=== PATIENT | male | born 1955 | race African-American/Black ===

== ENCOUNTER → 2017-06-08 | Outpatient (CLI) | payer BC ==
[2017-06-08 10:36] LABS: BASOPHILS % 0.4 % (0.0-2.0); EOSINOPHILS # 0.4 10^3/ul (0.0-0.5); EOSINOPHILS % 8.1 % (0.0-7.0); HEMATOCRIT 51.3 % (42.0-52.0); HEMOGLOBIN 16.6 g/dl (14.0-18.0); LYMPHOCYTES # 3.1 10^3/ul (0.8-2.9); LYMPHOCYTES % 58.4 % (15.0-51.0); MEAN CORPUSCULAR HEMOGLOBIN 26.2 pg (29.0-33.0); MEAN CORPUSCULAR HGB CONC 32.4 g/dl (32.0-37.0); MEAN PLATELET VOLUME 12.4 fl (7.4-10.4); MONOCYTE # 0.4 10^3/ul (0.3-0.9); MONOCYTES % 6.7 % (0.0-11.0); NEUTROPHIL # 1.4 10^3/ul (1.6-7.5); NEUTROPHILS % 26.2 % (39.0-77.0); PLATELET COUNT 140 10^3/UL (140-415); RED BLOOD COUNT 6.33 10^6/ul (4.70-6.10); RED CELL DISTRIBUTION WIDTH 15.1 % (11.5-14.5); WHITE BLOOD COUNT 5.3 10^3/ul (4.8-10.8)
[2017-06-08 10:47] LABS: ADD UMIC YES; UR ASCORBIC ACID NEGATIVE (NEGATIVE); UR BILIRUBIN (Dip) NEGATIVE (NEGATIVE); UR BLOOD (Dip) 1+ mg/dL (NEGATIVE); UR CLARITY CLEAR (CLEAR); UR COLOR YELLOW (YELLOW); UR GLUCOSE (Dip) NEGATIVE (NEGATIVE); UR KETONES (Dip) NEGATIVE (NEGATIVE); UR LEUKOCYTE ESTERASE (Dip) NEGATIVE Leu/ul (NEGATIVE); UR MUCUS FEW /HPF (NONE SEEN); UR NITRITE (Dip) NEGATIVE (NEGATIVE); UR RBC 0 /HPF (0-5); UR SPECIFIC GRAVITY (Dip) 1.025 (1.003-1.030); UR TOTAL PROTEIN (Dip) 1+ mg/dl (NEGATIVE); UR UROBILINOGEN (Dip) 1+ mg/dL (NEGATIVE)
[2017-06-08 10:58] LABS: ALBUMIN 4.3 g/dl (3.3-4.9); ALBUMIN/GLOBULIN RATIO 1.22; BILIRUBIN,INDIRECT 0.3 mg/dl (0-1.1); BILIRUBIN,TOTAL 0.3 mg/dl (0.2-1.3); CALCIUM 10.2 mg/dl (8.4-10.2); CHOL/HDL RATIO 2.9 RATIO; CREATININE 1.04 mg/dl (0.61-1.24); POTASSIUM 4.6 mmol/L (3.5-5.1); TOTAL PROTEIN 7.8 g/dl (6.1-8.1)
[2017-06-08 11:30] LABS: PROSTATE SPECIFIC ANTIGEN 1.2 ng/ml (0.0-4.0)
--- NOTE | 2017-06-08 17:25 | RADRPT ---
PROCEDURE: XR Chest. CLINICAL INDICATION: Cough. TECHNIQUE: Two views. Frontal and lateral. COMPARISON: 11/23/2014. FINDINGS: The lungs are clear. The heart size is normal. There is no pleural effusion. There is no pneumothorax. IMPRESSION: 1. Normal chest radiograph. RPTAT: QQ .Braxton Roman MD, MD Date Time Electronically viewed and signed by .Braxton Roman MD, on 06/08/2017 17:25 .R/
== END | disposition home or self-care (01) ==
LOC: LAB 09:40
PROVIDERS: ATTEND Internal Medicine
DX: N40.0 Benign prostatic hyperplasia without lower urinary tract symptoms (principal); E78.5 Hyperlipidemia, unspecified; I10 Essential (primary) hypertension
CPT/HCPCS: 71020; 80053; 80061; 81001; 83036; 84153; 84154; 85025

== ENCOUNTER → 2017-07-02 | Outpatient (CLI) | payer BC ==
[~2017-07-02] MED LIST: IOHEXOL 300MG/ML 150 ML BTL ONE; SOD CHLORIDE 0.9% 100 ML ONE
--- NOTE | 2017-07-02 11:45 | RADRPT ---
PROCEDURE: CT abdomen and pelvis without and with IV contrast - CT Urogram. CLINICAL INDICATION: Hematuria TECHNIQUE: CT of the abdomen and pelvis was performed on a multidetector scanner both before and f ollowing the uncomplicated IV administration of 100 cc of Omnipaque-300. Delayed images were obtain ed during the renal excretion phase. Coronal, sagittal and 3-D images were reconstructed from the a xial data set. One or more of the following dose reduction techniques were used: automated exposure control, adjustment of the mA and/or kV according to patient size, use of iterative reconstruction technique. CTDI = 11.85, 10.81, 9.81 mGy. DLP = 2402.68 mGy-cm. COMPARISON: No prior studies are available for comparison. FINDINGS: CT urogram: The kidneys are symmetric in size, position, and morphology. Multiple small bilateral nonobstructiv e renal calculi are identified measuring up to 4 mm on the right and 3 mm on the left. There is no enhancing renal mass. There is no evidence for obstructive uropathy. The ureters are symmetrically normal. No ureteral calculus is identified. The urinary bladder is unremarkable. CT abdomen: The lung bases are clear. The heart size is normal, without pericardial effusion. Coronary arteria l calcification is noted. Liver, gallbladder, biliary tree, pancreas, spleen and adrenal glands are unremarkable. The stomach is partially collapsed, but appears grossly unremarkable. There is no a bdominal aortic aneurysm or dissection. Scattered aortoiliac atherosclerotic calcifications are pre sent. No retroperitoneal or maye hepatis lymphadenopathy is identified. CT pelvis: There is no bowel obstruction, free intraperitoneal air or abscess. The appendix is well visualized and normal. There is no diverticulosis, diverticulitis or colitis. No pelvic mass, free fluid or lymphadenopathy is identified. The surrounding osseous structures are remarkable for mild degenerative enthesopathy of the spine N o osteolytic or osteoblastic lesion is detected. IMPRESSION: 1. Multiple small bilateral nonobstructive renal calculi are identified, without ureterolithiasis o r obstructive uropathy. 2. Coronary arterial and aortoiliac atherosclerotic calcifications are present. 3. No mass, lymphadenopathy, or acute inflammatory process is identified. RPTAT: QQ .Delfino Fam MD, MD Date Time Electronically viewed and signed by .Delfino Fam MD, on 07/02/2017 11:45 .R/
== END | disposition home or self-care (01) ==
LOC: C/S 09:20
PROVIDERS: ATTEND Internal Medicine
DX: R31.9 Hematuria, unspecified (principal)
CPT/HCPCS: 74178; Q9967

== ENCOUNTER → 2019-02-13 | Outpatient (CLI) | payer BC | END | disposition home or self-care (01) | LOC: LAB 09:35 | PROVIDERS: ATTEND Internal Medicine | DX: E78.5 Hyperlipidemia, unspecified (principal); N40.0 Benign prostatic hyperplasia without lower urinary tract symptoms; R73.03 Prediabetes | CPT/HCPCS: 80053; 80061; 81003; 83036; 84153; 84154; 85025 ==

== ENCOUNTER → 2019-02-16 | Outpatient (CLI) | payer BC | END | disposition home or self-care (01) | LOC: RAD 10:12 | PROVIDERS: ATTEND Internal Medicine | DX: J20.9 Acute bronchitis, unspecified (principal) | CPT/HCPCS: 71046 ==

== ENCOUNTER → 2019-04-18 | Outpatient (CLI) | payer BC | END | disposition home or self-care (01) | LOC: C/S 08:55 | PROVIDERS: ATTEND Internal Medicine | DX: I77.819 Aortic ectasia, unspecified site (principal) | CPT/HCPCS: 71250 ==

== ENCOUNTER 2019-05-05 09:15 | Day surgery (SDC) | payer BC ==
[~2019-05-05] VITALS: Ht 180.3 cm; Wt 91.2 kg
[2019-05-05 10:40] VITALS: Ht 180.3 cm; Wt 91.2 kg
[2019-05-05] MEDS ORDERED: IBUPROFEN (10:45)
[2019-05-05] MEDS ORDERED: BENICAR (10:45)
--- NOTE | 2019-05-05 12:12 | PREAC ---
Date/Time of Note Date/Time of Note DATE: 05/05/19 TIME: 12:11 Anesthesia Eval and Record Evaluation Time Pre-Procedure Interview DATE: 05/05/19 TIME: 12:11 Age 63 Sex male NPO: 8 hrs Preoperative diagnosis screening Planned procedure colonoscopy Past Medical History Past Medical History: Includes Cardio: HTN Pulm: Smoking Hx Surgery & Anesthesia Issues No known issue Meds Anticoagulation: No Beta Maricarmen within 24 hr: No Reason Beta Maricarmen not given: Pt. not on B-Maricarmen Reported Medications [Ibuprofen] No Conflict Check 05/05/19 [Benicar] No Conflict Check 05/05/19 Meds reviewed: Yes Allergies Coded Allergies: No Known Allergy (Unverified , 05/05/19) Allergies Reviewed: Yes Labs/Studies Labs Reviewed: Reviewed by anesthesiologist test: N/A Pre-procedure Exam Airway: Adequate mouth opening, Adequate thyromental dist Mallampati: Mallampati II Teeth: Normal Lung: Normal Heart: Normal ASA Physical Status ASA physical status: 2 Emergency: None Planned Anesthetic General/MAC: Mask Planned Pain Management Parenteral pain med Pre-operative Attestations Prior to commencing anesthesia and surgery, the patient was re-evaluated, there was verification of: *The patient's identity *The results of appropriate recent lab work and preoperative vital signs *The above evaluation not changing prior to induction *Anesthetic plan, risk benefits, alternative and complications discussed with patient/family; questions answered; patient/family understands, accepts and wishes to proceed. FLORA MEDINA MD May 05, 2019 12:12
[2019-05-05 12:20] VITALS: BP 160/107; PULSE 86; RESP 18
[2019-05-05] MEDS ORDERED: LIDOCAINE 2% (SDV) 5 ML INJ ONE (12:24)
[2019-05-05] MEDS ORDERED: PROPOFOL 40 ML ONE (12:24)
[2019-05-05] MEDS ORDERED: HYDROmorphONE 1 MG/5 ML IV SYRINGE IV PRN ×2 (12:30)
[2019-05-05] MEDS ORDERED: FENTAnyl 50 MCG/ML VIAL IV PRN (12:30)
[2019-05-05] MEDS ORDERED: DIPHENHYDRAMINE 50 MG INJ IV PRN (12:30)
[2019-05-05] MEDS ORDERED: MEPERIDINE 25 MG INJ IV PRN (12:30)
[2019-05-05] MEDS ORDERED: ONDANSETRON 4 MG INJ IV PRN (12:30)
[2019-05-05] MEDS ORDERED: PROPOFOL 20 ML ONE ×2 (13:02)
--- NOTE | 2019-05-05 13:30 | PAC ---
Date/Time of Note Date/Time of Note DATE: 05/05/19 TIME: 13:29 Post-Anesthesia Notes Post-Anesthesia Note Last documented vital signs Vital Signs Date Temp Pulse Resp B/P (MAP) Pulse Ox O2 O2 Flow FiO2 Time Delivery Rate 05/05/19 98.0 86 18 160/107 98 Room Air 12:20 (124) Activity: WNL Respiratory function: WNL Cardiovascular function: WNL Mental status: Baseline Pain reasonably controlled: Yes Hydration appropriate: Yes Nausea/Vomiting absent: Yes Comments BP: 100/62 HR: 89 RR: 15 SaO2: 99 FLORA MEDINA MD May 05, 2019 13:30
== END 2019-05-05 16:04 | disposition home or self-care (01) ==
LOC: GIL 09:15
PROVIDERS: ATTEND Internal Medicine Gastroenterology
DX: Z12.11 Encounter for screening for malignant neoplasm of colon (principal); K64.8 Other hemorrhoids; K62.1 Rectal polyp; I10 Essential (primary) hypertension; Z87.891 Personal history of nicotine dependence
CPT/HCPCS: 88305